=== PATIENT | male | born 1955 | race Caucasian/White ===

== ENCOUNTER → 2019-02-22 19:35 | Outpatient (REF) | payer MEDICARE, SELFPAY ==
[2019-02-22 21:27] LABS: Erythrocyte Sedimentation Rate 46 MM/HR (0-15)
== END ==
LOC: LAB 19:35
PROVIDERS: Visit Provider Emergency Medicine Emergency Medical Services
DX: M35.3 Polymyalgia rheumatica (principal)
CPT/HCPCS: 85651

== ENCOUNTER → 2019-03-05 14:20 | Outpatient (REF) | payer MEDICARE, SELFPAY ==
[2019-03-05 14:42] LABS: Erythrocyte Sedimentation Rate 19 MM/HR (0-15)
== END ==
LOC: LAB 14:20
PROVIDERS: Visit Provider Emergency Medicine Emergency Medical Services
DX: M35.3 Polymyalgia rheumatica (principal)
CPT/HCPCS: 85651